=== PATIENT | female | born 1985 | race Caucasian/White ===

== ENCOUNTER 2021-11-16 06:16 | Day surgery (SDC) | payer OTHER ==
[2021-11-15 12:47] LABS: COVID AG,FIA SOURCE NASOPHARYNGEAL
[~2021-11-16] VITALS: Ht 165.1 cm; Wt 122.3 kg
[~2021-11-16 06:16] MED LIST: CHOL500043 PO; FAMO20 PO; LISI-893 PO; SODIUM CHLORIDE 0.9% 1,000 ML IV ONE; SODIUM CHLORIDE 0.9% 1,000 ML ONE
[2021-11-16] MEDS ORDERED: PROPOFOL 1% 20 ML VIAL IVP ONE (06:17)
[2021-11-16] MEDS ORDERED: INDA2.5T5 PO (07:03)
== END 2021-11-16 09:35 | disposition home or self-care (01) ==
LOC: SURGERY 06:16
PROVIDERS: ATTEND Internal Medicine Gastroenterology
DX: R19.4 Change in bowel habit (principal); K64.0 First degree hemorrhoids; K57.30 Diverticulosis of large intestine without perforation or abscess without bleeding; I10 Essential (primary) hypertension; K21.9 Gastro-esophageal reflux disease without esophagitis; Z79.899 Other long term (current) drug therapy; Z98.890 Other specified postprocedural states; Z91.013 Allergy to seafood; Z91.030 Bee allergy status
CPT/HCPCS: 45380; 84703; 87426; 88305; C9803; J2704; J7030